=== PATIENT | male | born 1995 | race Two or more races ===

== ENCOUNTER 2017-10-31 23:43 | Observation (INO) | payer MEDICAID ==
[~2017-10-31] VITALS: Ht 170.2 cm; Wt 77.1 kg
[2017-11-01 00:37] LABS: Basophils # (auto) 0 uL; Basophils % (auto) 0.4 % (0.0-2.0); Eosinophils # (auto) 0 uL; Eosinophils % (auto) 0.2 % (0.0-7.0); Hematocrit 49.3 % (41.0-53.0); Lymphocytes # (auto) 3.8 uL; Lymphocytes % (auto) 34.4 % (10.0-50.0); Mean Corpuscular Hemoglobin 30.9 pg (28.0-32.0); Mean Corpuscular Hgb Conc. 34.5 g/dL (32.0-36.0); Mean Corpuscular Volume 89.6 fL (80.0-100.0); Monocytes # (auto) 0.6 uL; Monocytes % (auto) 5.5 % (0.0-12.0); Neutrophils # (auto) 6.5 uL; Neutrophils % (auto) 59.5 % (37.0-80.0); Nucleated Red Blood Cells % 0.1 %; Platelet Count (auto) 324 10^3/uL (140-450); Red Blood Cells 5.51 10^6/uL (4.5-5.90); White Blood Cell 10.9 10^3/uL (4.4-10.8)
[2017-11-01] MEDS ORDERED: SODIUM CHLORIDE 0.9% 1,000 ML IV ONE (00:45)
[2017-11-01 00:52] LABS: Albumin 4.5 g/dL (3.4-5.0); Anion Gap 9 (5-15); Blood Urea Nitrogen 11 mg/dL (7-18); Calcium 9.2 mg/dL (8.5-10.1); Carbon Dioxide 26 mmol/L (21-32); Chloride 105 mmol/L (98-107); Glucose 96 mg/dL (74-106); Potassium 3.3 mmol/L (3.5-5.1); Salicylate < 1.7 mg/dL (2.8-20.0); Sodium 140 mmol/L (136-145)
[2017-11-01 00:54] LABS: Acetaminophen < 2.0 ug/mL (10-30); Alanine Aminotransferase 40 U/L (16-61); Aspartate Aminotransferase 21 U/L (15-37); BUN/Creatinine Ratio 11.7; Blood Alcohol < 3.0 mg/dL (0-5); GFR African American 132 mL/min; GFR Non-African American 109 mL/min
[2017-11-01 00:57] LABS: Alkaline Phosphatase 94 U/L (45-117); Bilirubin, Total 0.5 mg/dL (0.2-1.0); Total Protein 8.8 g/dL (6.4-8.2)
[2017-11-01 00:59] LABS: Urine Bacteria FEW /hpf (None Seen); Urine Blood TRACE /uL (Negative); Urine WBC 3 /hpf (0 - 3)
[2017-11-01 01:10] LABS: Alcohol, Urine < 3.0 mg/dL (0-5); Amphetamine Screen, Urine NEGATIVE (NEGATIVE); Barbiturate Scree,Urine NEGATIVE (NEGATIVE); Benzodiazephine Screen, Urine NEGATIVE (NEGATIVE); Cannabinoid Screen, Urine NEGATIVE (NEGATIVE); Cocaine Screen, Urine NEGATIVE (NEGATIVE); Opiate Scree,Urine NEGATIVE (NEGATIVE); Phencyclidine Screen, Urine NEGATIVE (NEGATIVE)
[2017-11-01 13:13] VITALS: BP 140/77
== END 2017-11-01 13:29 | disposition home or self-care (01) | DRG 861 ==
LOC: EDBD 23:43 → ER 23:48 → OVERFLOW 23:49 → ER 11-01 13:29
PROVIDERS: ADMIT Emergency Medicine; ATTEND Emergency Medicine
DX: R41.82 Altered mental status, unspecified (principal); R45.851 Suicidal ideations; F32.9 Major depressive disorder, single episode, unspecified
CPT/HCPCS: 36415; 80053; 80307; 80320; 80329; 81001; 85025; 93005; 96360; 99285; G0378; J7030

== ENCOUNTER 2020-05-03 17:14 | Emergency (ER) | payer MEDICAID, OTHER ==
[~2020-05-03] VITALS: Ht 175.3 cm; Wt 108.9 kg
[2020-05-03 17:52] VITALS: BP 142/72
[2020-05-03] MEDS ORDERED: MORPHINE SULF INJ 2 MG/ML SYRINGE 1ML IM ONE (18:45)
[2020-05-03] MEDS ORDERED: ONDANSETRON ODT 4 MG TAB PO ONE (18:45)
[2020-05-03] MEDS ORDERED: NEOMYCIN-BACITRACIN-POLYM UNITDOSE PKG TOP OINT TOP ONE (19:00)
[2020-05-03] MEDS ORDERED: cefTRIAXone SOD 1,000 MG VL IM ONE (19:00)
== END 2020-05-03 22:15 | disposition home or self-care (01) ==
LOC: ER 17:14 → EDBD 17:14 → ER 22:15
DX: S61.011A Laceration without foreign body of right thumb without damage to nail, initial encounter (principal); S61.210A Laceration without foreign body of right index finger without damage to nail, initial encounter; S62.001A Unspecified fracture of navicular [scaphoid] bone of right wrist, initial encounter for closed fracture; S62.164A Nondisplaced fracture of pisiform, right wrist, initial encounter for closed fracture; R51.9 Headache, unspecified; M54.2 Cervicalgia; V43.52XA Car driver injured in collision with other type car in traffic accident, initial encounter; Y93.89 Activity, other specified; Y92.488 Other paved roadways as the place of occurrence of the external cause; Y99.8 Other external cause status
CPT/HCPCS: 12002; 70450; 72125; 73100; 73130; 82962; 96372; 99285; J0696; J2001; J2270; Q0162